=== PATIENT | female | born 1955 | race Two or more races ===

== ENCOUNTER 2024-10-14 07:48 | Day surgery (SDC) | payer OTHER ==
[~2024-10-14] VITALS: Ht 157.5 cm; Wt 103.4 kg
[2024-10-14] VITALS (8 sets, daily range): BP systolic 109–117; BP diastolic 64–81; PULSE 60–65; RESP 12–21; O2SAT 90–97
[~2024-10-14 07:48] MED LIST: AMLO1TAB22 PO; DIPH25CA66 PO; LORA-1121 PO; LOSA-534 PO
[2024-10-14] MEDS: SODIUM CHL 0.9% 0 ML ONE (09:31)
[2024-10-14] MEDS: ANGIOMAX 250 MG VIAL IV ONE (09:31)
[2024-10-14] MEDS: fentaNYL CITRATE 100 MCG/2 ML VL ONE (09:31)
[2024-10-14] MEDS: MIDAZOLAM HCL 2MG/2ML 2ml VIAL (1mg/ml) ONE (09:31)
[2024-10-14] MEDS: LIDOCAINE 2%HCL (LOCAL ANESTH.) INJ 20ML MDV ONE (09:31)
[2024-10-14] MEDS: IODIXANOL 320MG/ML 100ML BTL IV ONE ×2 (09:44→11:03)
--- NOTE | 2024-10-14 11:25 | DVHOP ---
DATE OF SURGERY: 10/14/2024 PREOPERATIVE DIAGNOSES: Severe PAD, ischemic rest pain. POSTOPERATIVE DIAGNOSES: Severe PAD, ischemic rest pain. PROCEDURES PERFORMED: * Ultrasound-guided vascular access. * Bilateral lower extremity angiogram. * Abdominal aortogram with runoff. * Catheterization, lower extremity. Lower extremity first order, lower extremity second order, lower extremity third order catheterization. * Hemostasis closure device. PROCEDURE IN DETAIL: The patient signed informed consent understanding risks, benefits, and alternatives to the procedure, she wished to proceed. She was brought to the computer lab assistant in n.p.o. state. She was prepped in sterile fashion. Sedation was used per Cardiac Cath protocol. I initially gave 1 mL of 2% lidocaine to the left ankle. I did do an ultrasound of the left ankle. I was not able to find a viable anterior tibial artery that was patent. Therefore, I turned my attention to the posterior tibial artery. I gave 1 mL of 2% lidocaine to that region. Under ultrasound-guided access, I was unable to cannulate the left posterior tibial artery and therefore I abandoned the attempt. At this point, I turned my attention to the right groin. I gave 8 mL of 2% lidocaine to the right groin. With an ultrasound-guided access, I cannulated the right common femoral artery and placed a 6-Syriac sheath. Ipsilateral angiogram was performed showing appropriate arteriotomy site. At this point, angiogram on the right shows a patent right common femoral artery and proximal SFA. Then, I did an abdominal angiogram with a RIM catheter. This shows a patent distal aorta, patent right and left common iliac artery, patent right and left external iliac artery, and a patent left common femoral artery. At this point, I parked my RIM catheter into the contralateral proximal SFA and angiogram was performed. This shows the left SFA proximal, mid, and distal are patent. Left popliteal artery is patent. Left posterior tibial artery is patent. Left peroneal artery is patent. Left anterior tibial artery is occluded. There is extremely sluggish flow into the distal vessels and aneurysmal ectatic vessels noted. At this point, all guides and wires were removed. A 6-Syriac Angio-Seal was used for closure. There were no immediate complications. 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 * Extremely sluggish flow in the distal left leg without significant obstructive disease. PLAN: The patient likely would benefit from aggressive weight loss, medical management, diabetes management if indicated, and antiplatelet therapy. Rich Reyes MD CM/DAIJA TID: [id number] RECEIPT: [id number]
--- NOTE | 2024-10-14 11:27 | ECG ---
[facility] Test Date: 2024-10-14 Test Time: 08:40:24 Pat Name: ADRIANNA TYLER Department: Room: Gender: F Fiber Optic Assembler: CASSANDRA : 1955 Requested By: KIMBERLY SANCHEZ Order Number: [id number] Reading MD: Virgil Luong Measurements Intervals Zeigler Rate: 67 P: 46 MO: 180 QRS: 7 QRSD: 94 T: 2 QT: 418 QTc: 441 Interpretive Statements Normal sinus rhythm Electronically Signed On 10-14-2024 18:47:31 PDT by Virgil Luong Please click the below link to view image of tracing.
== END 2024-10-14 14:00 | disposition home or self-care (01) ==
LOC: CATH 07:48
PROVIDERS: ATTEND Internal Medicine
DX: I70.222 Atherosclerosis of native arteries of extremities with rest pain, left leg (principal); I70.92 Chronic total occlusion of artery of the extremities; Z79.899 Other long term (current) drug therapy; Z88.0 Allergy status to penicillin; Z88.8 Allergy status to other drugs, medicaments and biological substances
CPT/HCPCS: 36247; 75630; 93005; C1760; C1769; C1894; J1644; J2250; J3010; Q9967; 99152